=== PATIENT | female | born 1995 | race Caucasian/White ===

== ENCOUNTER 2017-01-08 10:16 | Emergency (ER) | payer OTHER ==
[2017-01-08 12:23] LABS: #Eosinphils 0.2 thou/uL (0.0-0.7); #Lymphocytes 2.3 thou/uL (1.20-3.40); #Monocytes 0.8 thou/uL (0.11-0.59); #Neutrophils 10.5 thou/uL (1.40-6.50); %Basophils 0.4 % (0.0-1.0); %Eosinophils 1.3 % (0.0-10.0); %Lymphocytes 16.9 % (21.0-51.0); %Monocytes 5.9 % (0.0-10.0); Hematocrit 38.9 % (36.0-47.0); Mean Platelet Volume 8.3 fL (7.4-10.4); Red Blood Cell (RBC) Count 4.19 mill/uL (4.20-5.40); White Blood Cell (WBC) Count 13.9 thou/uL (4.8-10.8)
[2017-01-08 12:32] LABS: Bilirubin Negative (Negative); Blood, Urine Negative (Negative); Glucose, Urine (Dipstick) Negative (Negative); Ketone, Urine Negative (Negative); Nitrite Negative (Negative); Protein, Urine (Dipstick) Negative (Neg-Trace); Urobilinogen 0.2 mg/dL (0.2-1.0)
[2017-01-08 12:41] LABS: ALT (SGPT) 16 U/L (8-55); AST (SGOT) 26 U/L (5-34); Alkaline Phosphatase 115 U/L (40-150); Anion Gap 14 mmol/L (10-20); BUN (Urea Nitrogen) 7 mg/dL (7.0-18.7); Bilirubin, Total 0.3 mg/dL (0.2-1.2); Calc. Creatinine Clearance 0 mL/min (70-130); Calcium 9.1 mg/dL (7.8-10.44); Carbon Dioxide 16 mmol/L (22-29); Chloride 107 mmol/L (98-107); Estimated GFR-MDRD Greater than 90; Globulin 4.1 g/dL (2.4-3.5); Protein, Total 7.2 g/dL (6.0-8.3)
[2017-01-08] MEDS ORDERED: Metoclopramide HCl 10 MG/2 ML VIAL ONE (12:48)
[2017-01-08 15:09] LABS: Anion Gap 8 mmol/L (10-20); BUN (Urea Nitrogen) 6 mg/dL (7.0-18.7); Calc. Creatinine Clearance 0 mL/min (70-130); Calcium 8.2 mg/dL (7.8-10.44); Carbon Dioxide 23 mmol/L (22-29); Chloride 109 mmol/L (98-107); Estimated GFR-MDRD Greater than 90
== END 2017-01-08 16:14 | disposition home or self-care (01) ==
LOC: ERS 10:16
DX: O21.2 Late vomiting of pregnancy (principal); O99.513 Diseases of the respiratory system complicating pregnancy, third trimester; J06.9 Acute upper respiratory infection, unspecified; Z3A.32 32 weeks gestation of pregnancy
CPT/HCPCS: 36415; 80053; 81003; 85025; 96361; 96365; J2765

== ENCOUNTER 2017-02-27 11:54 | Inpatient (IN) | payer OTHER ==
[2017-02-28] MEDS ORDERED: LR / Pitocin 40 units/1000 ml 1,000 ML IV PRN (00:10)
[2017-02-28] MEDS ORDERED: LR 500 ML/Oxytocin 10 units 500 ML IV SCH ×2 (00:10)
[2017-02-28] MEDS ORDERED: Diphenoxylate HCl/Atropine Tablet PO PRN ×2 (00:10)
[2017-02-28] MEDS ORDERED: Ondansetron HCl/PF 4 MG/2 ML Vial IVP PRN ×3 (00:10→16:10)
[2017-02-28] MEDS ORDERED: Acetaminophen 500 MG TAB PO PRN (00:10)
[2017-02-28] MEDS ORDERED: Promethazine HCl 25 MG/ML VIAL IM PRN ×2 (00:10→10:06)
[2017-02-28] MEDS ORDERED: Ibuprofen 800 MG TAB PO PRN (00:10)
[2017-02-28] MEDS ORDERED: Misoprostol 200 MCG TAB PR PRN (00:10)
[2017-02-28] MEDS ORDERED: Docusate 100 MG CAP PO PRN (00:10)
[2017-02-28] MEDS ORDERED: Zolpidem Tartrate 5 MG TAB PO PRN ×2 (00:10→16:10)
[2017-02-28] MEDS ORDERED: HYDROcodone/Acetaminophen 5/325 mg Tablet PO PRN ×2 (00:10)
[2017-02-28] MEDS ORDERED: Lidocaine 1% (PF) 30 ML VIAL SC PRN (00:10)
[2017-02-28 00:48] VITALS: BMI 32.5
[2017-02-28] MEDS: Misoprostol 100 MCG TAB VAG SCH ×4 (01:16→10:20)
[2017-02-28] MEDS: Lactated Ringer's 1,000 ML IV SCH ×3 (01:16→10:05)
[2017-02-28 01:17] LABS: Hematocrit 33.3 % (36.0-47.0); Red Blood Cell (RBC) Count 3.76 mill/uL (4.20-5.40); White Blood Cell (WBC) Count 12.5 thou/uL (4.8-10.8)
[2017-02-28] MEDS ORDERED: Fentanyl 4 mcg/Marc 0.1% Cadd 100 ML ONE (09:07)
[2017-02-28] MEDS ORDERED: diphenhydrAMINE 50 MG/ML VIAL IVP PRN (10:06)
[2017-02-28] MEDS ORDERED: Lactated Ringer's 500 ML IV PRN (10:06)
[2017-02-28] MEDS ORDERED: Acetaminophen 325 MG TAB PO PRN (10:06)
[2017-02-28] MEDS ORDERED: Naloxone HCl 0.4 mg/ml Vial IVP PRN ×2 (10:06)
[2017-02-28] MEDS ORDERED: ePHEDrine/0.9% NaCl/PF SYRINGE 50 mg/10 ml SLOW IVP PRN (10:06)
[2017-02-28] MEDS ORDERED: Eucerin (Mineral Oil/Petrolatum,White) 30 gm Jar TOP PRN (10:06)
[2017-02-28] MEDS ORDERED: Fentanyl 4mcg/Marcaine 0.1% Cassette 100 ML EPIDURAL SCH (10:15)
[2017-02-28] MEDS ORDERED: Communication Order-Pharmacy FS SCH (10:15)
[2017-02-28] MEDS ORDERED: Lidocaine 1% (PF) 30 ML VIAL ONE (13:20)
[2017-02-28] MEDS ORDERED: LR / Pitocin 40 units/1000 ml 1,000 ML ONE (13:20)
[2017-02-28] MEDS ORDERED: Preparation H Ointment 28 GM TUBE PR PRN (16:10)
[2017-02-28] MEDS ORDERED: diphenhydrAMINE 25 MG CAP PO PRN (16:10)
[2017-02-28] MEDS ORDERED: Lanolin Ointment 7 GM TUBE TOP PRN (16:10)
[2017-02-28] MEDS ORDERED: Adacel (T-DAP) 0.5 ML VIAL IM ONE (16:10)
[2017-02-28] MEDS ORDERED: Benzocaine/Menthol 20-0.5% 60 ML CAN TOP PRN (16:10)
[2017-02-28] MEDS ORDERED: Bisacodyl 10 MG SUPP PR PRN (16:10)
[2017-02-28] MEDS ORDERED: Milk Of Magnesia 30 ML UDCUP PO PRN (16:10)
[2017-02-28] MEDS ORDERED: Acetaminophen/Codeine 30-300mg Tablet PO PRN ×2 (16:10)
[2017-02-28] MEDS ORDERED: LR / Pitocin 40 units/1000 ml 1,000 ML IV SCH (16:15)
[2017-02-28] MEDS: Ibuprofen 800 MG TAB PO SCH (18:10)
[2017-02-28] MEDS ORDERED: Lidocaine 2% PF 5 ML VIAL ONE (20:29)
[2017-02-28] MEDS: Docusate (Surfak) 240 MG CAP PO SCH (21:03)
[2017-03-01] MEDS: Ibuprofen 800 MG TAB PO SCH ×3 (02:02→21:20)
[2017-03-01] MEDS: Ferrous Sulfate 325 MG TAB PO SCH ×3 (02:08→17:01)
[2017-03-01] MEDS ORDERED: Sodium Chloride 0.9% 10 ML ONE (05:24)
[2017-03-01 05:26] LABS: Hematocrit 31.1 % (36.0-47.0); Mean Platelet Volume 7.9 fL (7.4-10.4); Red Blood Cell (RBC) Count 3.48 mill/uL (4.20-5.40); White Blood Cell (WBC) Count 16.2 thou/uL (4.8-10.8)
[2017-03-01] MEDS: Docusate (Surfak) 240 MG CAP PO SCH ×2 (08:49→21:20)
[2017-03-01] MEDS: Prenatal Vitamin 1 TAB PO SCH (08:49)
[2017-03-01] MEDS: Misoprostol 100 MCG TAB VAG SCH (15:28)
[2017-03-01 20:14] VITALS: TEMP 97.9
[2017-03-02] MEDS: Ibuprofen 800 MG TAB PO SCH (06:09)
[2017-03-02 07:59] VITALS: BP 123/79
[2017-03-02] MEDS: Docusate (Surfak) 240 MG CAP PO SCH (09:15)
[2017-03-02] MEDS: Prenatal Vitamin 1 TAB PO SCH (09:15)
[2017-03-02] MEDS: Ferrous Sulfate 325 MG TAB PO SCH (09:16)
== END 2017-03-02 12:50 | disposition home or self-care (01) | DRG 775 ==
LOC: L&D 02-28 00:06 → 3SW 02-28 19:21
PROVIDERS: ADMIT Obstetrics & Gynecology; ATTEND Obstetrics & Gynecology
PROC: 10E0XZZ Delivery of Products of Conception, External Approach (ICD-10-PCS; principal; 2017-02-28)
PROC: 0KQM0ZZ Repair Perineum Muscle, Open Approach (ICD-10-PCS; 2017-02-28)
PROC: 3E0P3VZ Introduction of Hormone into Female Reproductive, Percutaneous Approach (ICD-10-PCS; 2017-02-28)
PROC: 3E0P7VZ Introduction of Hormone into Female Reproductive, Via Natural or Artificial Opening (ICD-10-PCS; 2017-02-28)
PROC: 10907ZC Drainage of Amniotic Fluid, Therapeutic from Products of Conception, Via Natural or Artificial Opening (ICD-10-PCS; 2017-02-28)
PROC: 3E0334Z Introduction of Serum, Toxoid and Vaccine into Peripheral Vein, Percutaneous Approach (ICD-10-PCS; 2017-03-01)
DX: O70.1 Second degree perineal laceration during delivery (principal); Z37.0 Single live birth; O26.893 Other specified pregnancy related conditions, third trimester; Z3A.39 39 weeks gestation of pregnancy; Z67.11 Type A blood, Rh negative
CPT/HCPCS: 36415; 51702; 85027; 85461; 86780; 87340; 90384; 96372; A4216; J2001; J7120

== ENCOUNTER 2017-12-10 16:51 | Emergency (ER) | payer OTHER ==
[2017-12-10 17:46] LABS: Bilirubin Negative (Negative); Blood, Urine Negative (Negative); Clarity CLEAR (Clear); Glucose, Urine (Dipstick) Negative (Negative); Leukocyte Small (Negative); Nitrite Negative (Negative); Protein, Urine (Dipstick) Negative (Neg-Trace); Specific Gravity, Urine 1.025 (1.002-1.036); pH, Urine 6.5 (5.0-9.0)
[2017-12-10 17:47] LABS: Bacteria/HPF Rare-Few HPF (None Seen); Hyaline Casts/LPF 0-3 HYALINE CAST LPF (0-3 Hyaline); Pathc Cast-AUWi Flag 0.72 (0-2.49); Squamous Epithelial 0-3 HPF (0-3); WBC/HPF 0-3 HPF (0-3)
[2017-12-10 17:51] LABS: Pregnancy Test - Urine (BHCG) Negative (Negative); Pregu Control Background? CLEAR/WHITE (CLR/WHITE); Pregu Control Bar Appear? YES (CONTROL BAR); Specific Gravity 1.025 (1.002-1.036)
[2017-12-10] MEDS ORDERED: Ketorolac Tromethamine 30 MG/ML VIAL ONE (18:09)
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
[2017-12-10] MEDS ORDERED: Ondansetron ODT 4 MG TAB ONE (19:07)
[2017-12-10] MEDS ORDERED: Diazepam 5 MG TAB ONE (19:18)
== END 2017-12-10 20:17 | disposition home or self-care (01) ==
LOC: ERS 16:51
DX: S09.90XA Unspecified injury of head, initial encounter (principal); M54.9 Dorsalgia, unspecified; V43.62XA Car passenger injured in collision with other type car in traffic accident, initial encounter
CPT/HCPCS: 70450; 72040; 72100; 81003; 81015; 81025; 96372; J1885; Q0162

== ENCOUNTER 2018-10-21 07:44 | Emergency (ER) | payer OTHER, SELFPAY ==
[2018-10-21] MEDS ORDERED: Ketorolac Tromethamine 30 MG/ML VIAL ONE (08:35)
[2018-10-21] MEDS ORDERED: Ondansetron PF 4 MG/2 ML Vial ONE ×2 (08:35→15:45)
[2018-10-21 08:41] LABS: #Eosinphils 0.3 thou/uL (0.0-0.7); #Monocytes 0.4 thou/uL (0.11-0.59); #Neutrophils 5.8 thou/uL (1.40-6.50); %Basophils 0.2 % (0.0-1.0); %Eosinophils 3.4 % (0.0-10.0); %Lymphocytes 23.4 % (21.0-51.0); %Monocytes 4.3 % (0.0-10.0); %Neutrophils 68.7 % (42.0-75.0); Hemoglobin 13.9 g/dL (12.0-16.0); Mean Corpuscular HGB CONC 33.1 g/dL (32.0-36.0); Mean Corpuscular Hemoglobin 29.9 pg (27.0-31.0); Mean Corpuscular Volume 90.5 fL (78.0-98.0); Mean Platelet Volume 8.2 fL (7.4-10.4); Platelet Count 215 thou/uL (130-400); RBC Distribution Width 11.6 % (11.5-14.5); Red Blood Cell (RBC) Count 4.63 mill/uL (4.20-5.40); White Blood Cell (WBC) Count 8.4 thou/uL (4.8-10.8)
[2018-10-21 08:57] LABS: ALT (SGPT) 15 U/L (8-55); AST (SGOT) 14 U/L (5-34); Albumin 3.9 g/dL (3.5-5.0); Alkaline Phosphatase 61 U/L (40-150); Anion Gap 9 mmol/L (10-20); BUN (Urea Nitrogen) 10 mg/dL (7.0-18.7); Bilirubin, Total 0.4 mg/dL (0.2-1.2); Calc. Creatinine Clearance 0 mL/min (70-130); Calcium 8.8 mg/dL (7.8-10.44); Carbon Dioxide 26 mmol/L (22-29); Chloride 104 mmol/L (98-107); Estimated GFR-MDRD Greater than 90; Globulin 2.8 g/dL (2.4-3.5); Glucose 93 mg/dL (70-105); Lipase 13 U/L (8-78); Potassium 3.7 mmol/L (3.5-5.1); Protein, Total 6.7 g/dL (6.0-8.3); Sodium 135 mmol/L (136-145)
[2018-10-21 09:16] LABS: BHCG - Serum Negative (NEGATIVE); Pregs Control Background? CLEAR/WHITE (CLR/WHITE); Pregs Control Bar Appear? YES (CONTROL BAR)
[2018-10-21 09:17] LABS: Bilirubin Negative (Negative); Blood, Urine Negative (Negative); Clarity Clear (Clear); Glucose, Urine (Dipstick) Normal (Negative); Leukocyte Negative Leu/uL (Negative); Nitrite Negative (Negative); Protein, Urine (Dipstick) Negative (Neg-Trace); Urobilinogen Normal mg/dL (Less than 2)
--- NOTE | 2018-10-21 09:21 | ULT ---
US Pelvic Complete History: Pelvic pain Comparison: None. Findings: Right ovary measures 2.6 x 3.3 x 1.6 mm the left ovary measures 2.2 x 2.6 x 1.6 cm. Endomet rial thickness is 9 mm. Uterus measures 10.1 x 3.2 x 5.7 cm. No adnexal mass. Normal vascular flow to both ovaries. Impression: Normal pelvic exam.
[2018-10-21] MEDS ORDERED: Morphine 4 MG/ML VIAL ONE (11:10)
--- NOTE | 2018-10-21 12:20 | CT ---
EXAM: CT abdomen and pelvis with IV contrast PROVIDED CLINICAL HISTORY: Right lower quadrant pain COMPARISON: None FINDINGS: The visualized lung bases are free of significant opacity. The solid abdominal organs demonstrate an unremarkable CT appearance. There is no bowel dilatation, inflammatory fat stranding, significant free fluid or free air apparent . There is no evidence for appendicitis. Heterogeneous attenuation involving the uterus is nonspecific and presumably on the basis of phase of menstruation. Presumably attendant minimal free p elvic fluid. No regional lymph node enlargement apparent. The regional major vascular structures appear unremarkab le. The osseous structures demonstrate no concerning lytic or blastic lesions. IMPRESSION: No evidence for an acute process.
[2018-10-21] MEDS ORDERED: Morphine 2 MG/ML SYRINGE ONE ×2 (13:52→14:06)
[2018-10-21] MEDS ORDERED: ISOVUE-370 76%-LOCM 1 ML ONE (16:24)
[2018-10-21] MEDS ORDERED: Iopamidol 370 76% 50 ML VIAL FS ONE (16:24)
[2018-10-22 22:49] LABS: Chlamydia by PCR Not Detected (NotDetected); GC by PCR Not Detected (NotDetected)
== END 2018-10-21 16:52 | disposition home or self-care (01) ==
LOC: ERS 07:44
DX: R10.31 Right lower quadrant pain (principal); R11.2 Nausea with vomiting, unspecified
CPT/HCPCS: 36415; 74177; 76856; 80053; 81003; 83690; 84703; 85025; 87480; 87491; 87510; 87591; 87660; 96361; 96374; 96375; 96376; J1885; J2270; J2405; Q9966; Q9967

== ENCOUNTER 2018-11-12 11:25 | Emergency (ER) | payer SELFPAY ==
[2018-11-12 12:02] LABS: #Eosinphils 0.2 thou/uL (0.0-0.7); #Lymphocytes 2.3 thou/uL (1.20-3.40); #Monocytes 0.4 thou/uL (0.11-0.59); #Neutrophils 2.9 thou/uL (1.40-6.50); %Basophils 0.6 % (0.0-1.0); %Lymphocytes 39.4 % (21.0-51.0); %Monocytes 6.6 % (0.0-10.0); %Neutrophils 50.4 % (42.0-75.0); Hemoglobin 14.7 g/dL (12.0-16.0); Mean Corpuscular HGB CONC 34.1 g/dL (32.0-36.0); Mean Corpuscular Hemoglobin 30.7 pg (27.0-31.0); Mean Platelet Volume 8.1 fL (7.4-10.4); Platelet Count 218 thou/uL (130-400); RBC Distribution Width 11.2 % (11.5-14.5); Red Blood Cell (RBC) Count 4.81 mill/uL (4.20-5.40); White Blood Cell (WBC) Count 5.8 thou/uL (4.8-10.8)
[2018-11-12 12:14] LABS: Bilirubin Negative (Negative); Blood, Urine Negative (Negative); Clarity Clear (Clear); Glucose, Urine (Dipstick) Normal (Negative); Leukocyte Negative Leu/uL (Negative); Nitrite Negative (Negative); Protein, Urine (Dipstick) Negative (Neg-Trace); Urobilinogen Normal mg/dL (Less than 2)
[2018-11-12 12:20] LABS: Pregnancy Test - Urine (BHCG) Negative (Negative); Pregu Control Background? CLEAR/WHITE (CLR/WHITE); Pregu Control Bar Appear? YES (CONTROL BAR); Specific Gravity 1.008 (1.002-1.036)
[2018-11-12 12:28] LABS: ALT (SGPT) 17 U/L (8-55); AST (SGOT) 17 U/L (5-34); Albumin 4.4 g/dL (3.5-5.0); Alkaline Phosphatase 77 U/L (40-150); Anion Gap 11 mmol/L (10-20); BUN (Urea Nitrogen) 9 mg/dL (7.0-18.7); Bilirubin, Total 0.3 mg/dL (0.2-1.2); Calc. Creatinine Clearance 0 mL/min (70-130); Calcium 9.5 mg/dL (7.8-10.44); Carbon Dioxide 25 mmol/L (22-29); Chloride 105 mmol/L (98-107); Estimated GFR-MDRD Greater than 90; Globulin 3.2 g/dL (2.4-3.5); Glucose 86 mg/dL (70-105); Potassium 3.8 mmol/L (3.5-5.1); Protein, Total 7.6 g/dL (6.0-8.3); Sodium 137 mmol/L (136-145)
[2018-11-12] MEDS ORDERED: Ketorolac Tromethamine 60 MG/2 ML VIAL ONE (13:09)
--- NOTE | 2018-11-12 14:24 | ULT ---
TRANSABDOMINAL TRANSVAGINAL PELVIC ULTRASOUND DATE:: 11/12/2018 12:56 PM CLINICAL HISTORY: History of right lower quadrant abdominal pain and pelvic pain, constipation - control pills 3 months. COMPARISON: Pelvic ultrasound dated October 2018 TECHNIQUE: Grayscale, color Doppler and spectral Doppler images were obtained of the pelvis see a tra nsabdominal transvaginal approach Uterus: Size: 8.3 x 3.4 x 6.0 Mass: None Cervix: Within normal limits Endometrium: Normal Endometrial Thickness: 8.4 mm Ovaries: Size: right measures 3.3 x 2.1 x 3.2 cm; left ovary was not visualized Mass: None. Flow: Normal Cul-de-sac: Minimal free fluid IMPRESSION: No definite acute sonographic abnormalities seen within the pelvis. Nonvisualization of the left ovary. Minimal free fluid in pelvis
== END 2018-11-12 15:13 | disposition home or self-care (01) ==
LOC: ERS 11:25
DX: R10.30 Lower abdominal pain, unspecified (principal)
CPT/HCPCS: 36415; 76856; 80053; 81003; 81025; 85025; 96372; J1885

== ENCOUNTER 2018-12-28 11:43 | Emergency (ER) | payer SELFPAY ==
[2018-12-28] MEDS ORDERED: Ondansetron PF 4 MG/2 ML Vial ONE ×2 (12:13→12:30)
[2018-12-28 12:19] LABS: #Eosinphils 0.2 thou/uL (0.0-0.7); #Lymphocytes 0.8 thou/uL (1.20-3.40); #Monocytes 0.4 thou/uL (0.11-0.59); #Neutrophils 11.3 thou/uL (1.40-6.50); %Eosinophils 1.8 % (0.0-10.0); %Lymphocytes 6.5 % (21.0-51.0); %Monocytes 3.4 % (0.0-10.0); %Neutrophils 88.3 % (42.0-75.0); Hemoglobin 14.5 g/dL (12.0-16.0); Mean Corpuscular HGB CONC 34.5 g/dL (32.0-36.0); Mean Corpuscular Hemoglobin 31.3 pg (27.0-31.0); Mean Corpuscular Volume 90.7 fL (78.0-98.0); Platelet Count 224 thou/uL (130-400); RBC Distribution Width 11.2 % (11.5-14.5); Red Blood Cell (RBC) Count 4.62 mill/uL (4.20-5.40); White Blood Cell (WBC) Count 12.8 thou/uL (4.8-10.8)
[2018-12-28 12:42] LABS: ALT (SGPT) 15 U/L (8-55); AST (SGOT) 16 U/L (5-34); Albumin 4.3 g/dL (3.5-5.0); Alkaline Phosphatase 70 U/L (40-110); Anion Gap 12 mmol/L (10-20); BUN (Urea Nitrogen) 13 mg/dL (7.0-18.7); Bilirubin, Total 0.7 mg/dL (0.2-1.2); Calc. Creatinine Clearance 0 mL/min (70-130); Carbon Dioxide 22 mmol/L (22-29); Chloride 105 mmol/L (98-107); Estimated GFR-MDRD Greater than 90; Globulin 3.1 g/dL (2.4-3.5); Glucose 106 mg/dL (70-105); Potassium 3.7 mmol/L (3.5-5.1); Protein, Total 7.4 g/dL (6.0-8.3); Sodium 135 mmol/L (136-145)
[2018-12-28 12:47] LABS: BHCG - Serum Negative (NEGATIVE); Pregs Control Background? CLEAR/WHITE (CLR/WHITE); Pregs Control Bar Appear? YES (CONTROL BAR)
[2018-12-28] MEDS ORDERED: Acetaminophen 325 MG TAB ONE (12:48)
[2018-12-28 12:56] LABS: Bacteria/HPF None Seen HPF (None Seen); Bilirubin Negative (Negative); Blood, Urine 1+ (Negative); Clarity Clear (Clear); Glucose, Urine (Dipstick) Normal (Negative); Leukocyte Negative Leu/uL (Negative); Nitrite Negative (Negative); Protein, Urine (Dipstick) Negative (Neg-Trace); RBC/HPF 0-3 HPF (0-3); Squamous Epithelial 0-3 HPF (0-3); Urobilinogen Normal mg/dL (Less than 2); WBC/HPF 0-3 HPF (0-3)
== END 2018-12-28 14:09 | disposition home or self-care (01) ==
LOC: ERS 11:43
DX: R11.2 Nausea with vomiting, unspecified (principal); R19.7 Diarrhea, unspecified
CPT/HCPCS: 80053; 81003; 81015; 84703; 85025; 93005; 96361; 96374; J2405